=== PATIENT | male | born 1965 | race African-American/Black ===

== ENCOUNTER 2016-07-03 13:38 | Emergency (ER) | payer MEDICAID ==
[~2016-07-03] VITALS: Ht 182.9 cm; Wt 81.2 kg
[2016-07-03 14:08] VITALS: BP 140/93
[2016-07-03] MEDS ORDERED: diphenhdrAMINE HCL 50 MG/1 ML VL IM ONE (15:45)
[2016-07-03] MEDS ORDERED: methylPREDNISolone SOD SUCC 125 MG/2 ML VL IM ONE (15:45)
== END 2016-07-03 16:24 | disposition home or self-care (01) ==
LOC: ER 13:55
DX: T78.40XA Allergy, unspecified, initial encounter (principal); M79.89 Other specified soft tissue disorders; F17.210 Nicotine dependence, cigarettes, uncomplicated
CPT/HCPCS: 96372; 99284; J1200; J2930

== ENCOUNTER 2017-01-15 06:26 | Emergency (ER) | payer MEDICAID ==
[~2017-01-15] VITALS: Ht 190.5 cm; Wt 81.2 kg
[2017-01-15 07:04] VITALS: BP 128/80
[2017-01-15] MEDS ORDERED: cefTRIAXone SOD 1,000 MG VL IM ONE (07:15)
[2017-01-15] MEDS ORDERED: KETOROLAC TROMETH 60MG/2ML VIAL IM ONE (07:15)
== END 2017-01-15 07:40 | disposition home or self-care (01) ==
LOC: ER 06:26
DX: K02.9 Dental caries, unspecified (principal)
CPT/HCPCS: 96372; 99284; J0696; J1885

== ENCOUNTER 2024-11-18 09:42 | Emergency (ER) | payer MEDICAID ==
[~2024-11-18] VITALS: Ht 182.9 cm; Wt 62.0 kg
[2024-11-18 10:20] VITALS: BP 124/88; PULSE 93; RESP 16; TEMP 98.1; O2SAT 96
--- NOTE | 2024-11-18 10:38 | ED.PDOC ---
General HPI Comments 59 year old male presents to the ED for the c/c of pain w/ urination, and left lower back pain that radiates down his left leg. Pt notes of "scant urine", and an increased sensation of Urgency, but a decrease in urine output at this time. Denies fevers chills night sweats Denies pelvic pain Denies nausea vomiting diarrhea Denies dysuria urgency frequency Denies history of UTI Denies blood in the urine or semen Denies recent instruments/toys and urethra Denies current tobacco use Denies family history of prostate issues Chief Complaint: Urinary Time Seen by MD: 10:31 Primary Care Provider: DENIES Reviewed notes: Nurses Notes, Medications, Allergies Allergies: Coded Allergies: NO KNOWN ALLERGIES (Unverified , 10/14/11) Information Source: Patient Mode of Arrival: Ambulatory Severity: Moderate Inability to void: Moderate Timing: Months Has not urinated for: Hours Prehospital treatment: None Onset: Spontaneous Symptoms: Dysuria, Frequency, Urgency History of: None Location: (L)Flank Penile discharge: None Modifying factors: None associated signs and symptoms: Abdominal Pain, Flank Pain, Back Pain, Dysuria, Frequency, Urgency Past Medical History PAST MEDICAL HISTORY: Denies Surgical History: Denies all surgeries Family History Family History: Unknown Social History Smoker: Cigarettes Alcohol: Denies ETOH Use Drugs: Denies Drug Use Lives In: Home Constitutional: denies: chills, diaphoresis, fatigue, fever, malaise, sweats, weakness, others EENTM: denies: blurred vision, double vision, ear bleeding, ear discharge, ear drainage, ear pain, ear ringing, eye pain, eye redness, hearing loss, mouth pain, mouth swelling, nasal discharge, nose bleeding, nose congestion, nose pain, photophobia, tearing, throat pain, throat swelling, voice changes, others Respiratory: denies: cough, hemoptysis, orthopnea, SOB at rest, shortness of breath, SOB with excertion, stridor, wheezing, others Cardiovascular: denies: chest pain, dizzy spells, diaphoresis, Dyspnea on exertion, edema, irregular heart beat, left arm pain, lightheadedness, palpitations, PND, syncope, others Gastrointestinal: denies: abdomen distended, abdominal pain, blood streaked bowels, constipated, diarrhea, dysphagia, difficulty swallowing, hematemesis, melena, nausea, poor appetite, poor fluid intake, rectal bleeding, rectal pain, vomiting, others Genitourinary: reports: dysuria, flank pain, frequency; denies: burning, hematuria, incontinence, penile discharge, penile sore, pain, testicle pain, testicle swelling, urgency, others Neurological: denies: dizziness, fainting, headache, left sided numbness, left sided weakness, numbness, paresthesia, pre-existing deficit, right sided numbness, right sided weakness, seizure, speech problems, tingling, tremors, weakness, others Musculoskeletal: denies: back pain, gout, joint pain, joint swelling, muscle pain, muscle stiffness, neck pain, others Integumetry: denies: bruises, change in color, change in hair/nails, dryness, laceration, lesions, lumps, rash, wounds, others Allergic/Immunocompromised: denies: Difficulty Healing, Frequent Infections, Hives, Itching, others Hematologic/Lymphatic: denies: anemia, blood clots, easy bleeding, easy bruising, swollen glands, others Endocrine: denies: excessive hunger, excessive sweating, excessive thirst, excessive urination, flushing, intolerance to cold, intolerance to heat, unexpla ined weight gain, unexplained weight loss, others Psychiatric: denies: anxiety, bipolar disorder, depression, hopeless, panic disorder, schizophrenia, sleepless, suicidal, others All Other Systems: Reviewed and Negative Physical Exam General Appearance: No Apparent Distress, Normal HEENT: Normal ENT Inspection, Pharynx Normal, TMs Normal Neck: Full Range of Motion, Non-Tender, Normal, Normal Inspection Respiratory: Chest Non-Tender, Lungs Clear, No Accessory Muscle Use, No Respiratory Distress, Normal Breath Sounds Cardiovascular: No Edema, No JVD, No Murmur, Normal Peripheral Pulses, Regular Rate/Rhythm Breast Exam: Deferred Gastrointestinal: Non Tender, No Pulsatile Mass, Normal Bowel Sounds, Soft Genitalia: Deferred Pelvic: Deferred Rectal: Deferred Extremities: No calf tenderness, Normal capillary refill, Normal inspection, Normal range of motion, Non-tender, No pedal edema Musculoskeletal : Apperance: Normal Neurologic: Alert, No Motor Deficits, Normal Mood Cerebellar Function: Normal Reflexes: Normal Skin: Dry, Normal Color, Warm Lymphatic: No Adenopathy Was a procedure done? Was a procedure done?: No Differential Diagnosis Kidney stone (Female): Other Urinary Problem (Male): Bladder Obstruction, Prostatitis, Plelonephritis, Renal Failure, Urethritis, Urinary Retention, Urolithiasis, UTI X-Ray, Labs, Meds, VS Vital Signs Date Time Temp Pulse Resp B/P (MAP) Pulse Ox O2 Delivery O2 Flow Rate FiO2 11/18/24 10:20 93 16 96 Room Air 11/18/24 10:20 98.1 93 16 124/88 (100) 96 98.1 11/18/24 09:50 98.1 93 16 124/88 (100) 96 98.1 Lab Test 11/18/24 10:15 11/18/24 09:48 Range/Units White Blood Count 6.9 4.4-10.8 10^3/uL Red Blood Count 4.45 L 4.5-5.90 10^6/uL Hemoglobin 13.0 L 13.5-17.5 g/dL Hematocrit 38.3 L 41.0-53.0 % Mean Corpuscular Volume 86.1 80.0-100.0 fL Mean Corpuscular Hemoglobin 29.1 28.0-32.0 pg Mean Corpuscular Hemoglobin Concent 33.8 32.0-36.0 g/dL Red Cell Distribution Width 15.6 H 11.8-14.3 % Platelet Count 354 140-450 10^3/uL Mean Platelet Volume 7.8 6.9-10.8 fL Neutrophils (%) (Auto) 68.5 37.0-80.0 % Lymphocytes (%) (Auto) 22.3 10.0-50.0 % Monocytes (%) (Auto) 7.1 0.0-12.0 % Eosinophils (%) (Auto) 1.1 0.0-7.0 % Basophils (%) (Auto) 1.0 0.0-2.0 % Neutrophils # (Auto) 4.7 1.6-8.6 10 ^3/uL Lymphocytes # (Auto) 1.5 0.4-5.4 10 ^3/uL Monocytes # (Auto) 0.5 0-1.3 10 ^3/uL Eosinophils # (Auto) 0.1 0-0.8 10 ^3/uL Basophils # (Auto) 0.1 0-0.2 10 ^3/uL Nucleated Red Blood Cells 0.1 % Sodium Level 139 136-145 mmol/L Potassium Level 4.8 3.5-5.1 mmol/L Chloride Level 104 98-107 mmol/L Carbon Dioxide Level 26 20-31 mmol/L Anion Gap 9 5-15 Blood Urea Nitrogen 16 9-23 mg/dL Creatinine 1.52 H 0.700-1.30 mg/dL Glomerular Filtration Rate Calc 52 >90 mL/min BUN/Creatinine Ratio 10.5 10.0-20.0 Serum Glucose 97 74-106 mg/dL Calcium Level 10.2 8.7-10.4 mg/dL Urine Color Yellow Yellow Urine Clarity Clear Clear Urine pH 6.0 5.0-9.0 Urine Specific Graham 1.029 1.001-1.035 Urine Protein Trace H Negative Urine Ketones Negative Negative Urine Blood Negative Negative /uL Urine Nitrite Negative Negative Urine Bilirubin Negative Negative Urine Urobilinogen Normal Negative mg/dL Urine Leukocyte Esterase Negative Negative /uL Urine RBC 2 0 - 3 /hpf Urine Microscopic WBC 6 H 0-3 /HPF Urine Squamous Epithelial Cells Few <5 /hpf Urine Bacteria None seen None Seen /hpf Urine Mucus Few None Seen Urine Yeast (Budding) Occasional None Seen /hpf Urine Sperm Present None Seen /hpf Urine Glucose Normal Normal mg/dL Chlamydia trachomatis (ISMAEL) Pending Neisseria gonorrhoeae (ISMAEL) Pending Current Medications Medications (Trade) Dose Ordered Sig/Jaquelin Route Start Time Stop Time Status Last Admin Tamsulosin HCl (Flomax) 0.4 mg ONCE ONCE PO 11/18/24 10:45 11/18/24 10:46 DC 11/18/24 11:06 PATIENT: JANAE MELENDEZ ACCT: [id number] UNIT: [id number] : 1965 LOC: ER ROOM / BED: / AGE / SEX: 59 / M ADM STATUS: REG ER SERVICE 1208 ORDERING PHYSICIAN: EDUAR SANCHEZ NP PROCEDURE(s): ABPL - CT AB PEL WO CON-NO ORAL OR IV REASON: R/o kidney stone ORDER NUMBER(s): [id number], ACCESSION NUMBER(s): [id number] Indication: R/o kidney stone Technique: CT axial images of the abdomen and pelvis are obtained without contrast. Coronal and sagittal reformats were obtained. Radiation Dose Information: CTDI volume is 5.07 mGy. Dose-length product is 291.8 mGy*cm Comparison: None FINDINGS: There is limited interpretation of the abdomen and pelvis without administration of intravenous contrast. Lung bases demonstrate 4 mm right lower lobe pulmonary nodule. 9 mm right lower lobe solid nodule. 8 mm right lower lobe solid nodule. 6 mm left lower lobe solid nodule. The right adrenal gland unremarkable. Left adrenal gland poorly characterized. Spleen and pancreas are unremarkable in shape. Liver unremarkable in shape. No CT evidence for cholelithiasis. Left kidney demonstrates no hydronephrosis /nephrolithiasis. The right kidney demonstrates moderate to severe right hydroureteronephrosis. Right renal parenchymal thinning. Retrocrural lymph node measuring 2.4 cm. Stomach is partially distended. The small bowel loops are normal in caliber. Moderate volume stool in the colon. Radiopaque foreign body along the anterior aspect of the right iliac bone measuring 2 cm. Extensive retroperitoneal lymphadenopathy measuring up to 4.6 cm. Bilateral iliac lymphadenopathy including left iliac lymph node measuring 2.7 cm, right iliac lymph node measuring 4.5 cm. Bladder partially distended. Left pelvic sidewall lymph node measuring 2 cm. Right pelvic sidewall lymph node measuring 2.3 cm. Prostate measures 7.2 cm anteriorly and extends into the bladder, possibly compressing upon the distal right ureter. Soft tissue edema /anasarca. Extensive axial and appendicular skeleton osteoblastic metastatic lesions. This includes left acetabular lesion measuring 2.9 cm, sacral lesion measuring 2.7 cm, left sacral lesion measuring 1.4 cm, L4 lesion measuring 3.5 cm, L3 lesion measuring 2.9 cm, L2 lesion measuring 1.9 cm, L1 lesion measuring 2 cm. Multiple lesions also seen within the visualized portion of the thoracic spine. 2.6 cm right medial thigh radiopaque foreign body. IMPRESSION: Limited evaluation without contrast. Findings consistent with underlying malignancy. Recommend oncology consultation and CT chest abdomen pelvis with contrast. Moderate to severe right hydroureteronephrosis, likely secondary to compression of the ureter from adjacent lymphadenopathy /prostate enlargement / malignancy. Extensive retroperitoneal, retrocrural, pelvic sidewall, iliac lymphadenopathy consistent with underlying malignancy/ metastatic disease. 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 Bilateral pulmonary nodules likely representing metastatic lesions. Radiopaque foreign bodies anterior to the right iliac bone and in the medial right thigh, likely sequela of previous trauma. Correlate clinically. Other findings as described. X-Ray, Labs, Meds, VS Comment 59 year old male presents to the ED for the c/c of pain w/ urination, and left lower back pain that radiates down his left leg. Patient arrives alert and oriented, ABC's intact, afebrile, vital signs stable, saturating well in room air CBC was ordered to exclude anemia, blood loss, or infection. BMP was ordered to exclude electrolyte abnormalities, renal failure, dehydration, hyperglycemia Urinalysis was ordered to rule out UTI or hematuria. Flomax x 1 given with no adverse reactions. Chest CT ordered IMPRESSION: Limited evaluation without contrast.Findings consistent with underlying malignancy. Recommend oncology consultation and CT chest abdomen pelvis with contrast.Moderate to severe right hydroureteronephrosis, likely secondary to compression of the ureter from adjacent lymphadenopathy /prostate enlargement / malignancy.Extensive retroperitoneal, retrocrural, pelvic sidewall, iliac lymphadenopathy consistent with underlying malignancy/ metastatic disease.Extensive axial and appendicular skeleton osteoblastic metastatic disease.Bilateral pulmonary nodules likely representing metastatic lesions.Radiopaque foreign bodies anterior to the right iliac bone and in the medial right thigh, likely sequela of previous trauma. Correlate clinically.Other findings as described. The patient's workup reveals that the patient needs further evaluation and/or treatment for the above medical conditions. Patient verbalized understanding of the above and is awaiting further evaluation by the admitting service. Time of 1ST Reevaluation: 11:02 Reevaluation 1ST: Unchanged Patient Education/Counseling: Diagnosis, Treatment Family Education/Counseling: No Family Present Departure 1 Departure Time of Disposition: 13:24 Impression: Primary Impression: Pulmonary nodule Additional Impressions: Lymphoma Qualified Codes: C85.90 - Non-Hodgkin lymphoma, unspecified, unspecified site Hydroureteronephrosis Metastatic disease Qualified Codes: C79.9 - Secondary malignant neoplasm of unspecified site Disposition: ADMITTED INPATIENT Condition: Critical Critical Care Note Critical Care Time?: No Stability Stability form required: No Heart Score Heart Score: Heart Score Response (Comments) Value History N/A 0 EKG N/A 0 Age N/A 0 Risk Factors N/A 0 Troponin N/A 0 Total 0 I personally scribed for EDUAR SANCHEZ NP ([email or web address]) on 11/18/24 at 10:38. Electronically submitted by [place] ([email or web address]). I personally scribed for EDUAR SANCHEZ NP ([email or web address]) on 11/18/24 at 13:40. Electronically submitted by [place] ([email or web address]). EDUAR SANCHEZ NP Nov 18, 2024 10:38
[2024-11-18 10:41] LABS: Basophils # (auto) 0.1 10 ^3/uL (0-0.2); Eosinophils # (auto) 0.1 10 ^3/uL (0-0.8); Eosinophils % (auto) 1.1 % (0.0-7.0); Hematocrit 38.3 % (41.0-53.0); Lymphocytes # (auto) 1.5 10 ^3/uL (0.4-5.4); Lymphocytes % (auto) 22.3 % (10.0-50.0); Mean Corpuscular Hemoglobin 29.1 pg (28.0-32.0); Mean Corpuscular Hgb Conc. 33.8 g/dL (32.0-36.0); Mean Corpuscular Volume 86.1 fL (80.0-100.0); Monocytes # (auto) 0.5 10 ^3/uL (0-1.3); Monocytes % (auto) 7.1 % (0.0-12.0); Neutrophils # (auto) 4.7 10 ^3/uL (1.6-8.6); Neutrophils % (auto) 68.5 % (37.0-80.0); Nucleated Red Blood Cells % 0.1 %; Platelet Count (auto) 354 10^3/uL (140-450); Red Blood Cells 4.45 10^6/uL (4.5-5.90); Red Cell Distribution Width 15.6 % (11.8-14.3); White Blood Cell 6.9 10^3/uL (4.4-10.8)
[2024-11-18 10:47] LABS: Chloride 104 mmol/L (98-107); Potassium 4.8 mmol/L (3.5-5.1); Sodium 139 mmol/L (136-145)
[2024-11-18 10:48] LABS: Anion Gap 9 (5-15); Carbon Dioxide 26 mmol/L (20-31)
[2024-11-18 10:49] LABS: Calcium 10.2 mg/dL (8.7-10.4)
[2024-11-18 10:53] LABS: Glucose 97 mg/dL (74-106)
[2024-11-18 10:54] LABS: BUN/Creatinine Ratio 10.5 (10.0-20.0); Blood Urea Nitrogen 16 mg/dL (9-23)
[2024-11-18 10:57] LABS: Urine Bacteria None Seen /hpf (None Seen)
[2024-11-18] MEDS: TAMSULOSIN HYDROCHLORIDE 0.4 MG CAP PO ONE (11:06)
[2024-11-18 11:14] LABS: Urine Blood Negative /uL (Negative); Urine Budding Yeast OCCASIONAL /hpf (None Seen); Urine Clarity Clear (Clear); Urine Color Yellow (Yellow); Urine Mucus FEW (None Seen); Urine Protein, UAD TRACE (Negative); Urine Specific Gravity 1.029 (1.001-1.035); Urine Sperm PRESENT /hpf (None Seen); Urine Squamous Epithelial Cell FEW /hpf (<5); Urine Urobilinogen Normal (Negative); Urine WBC 6 /HPF (0-3)
--- NOTE | 2024-11-18 13:00 | DVH ---
Indication: R/o kidney stone Technique: CT axial images of the abdomen and pelvis are obtained without contrast. Coronal and sagit dulce reformats were obtained. Radiation Dose Information: CTDI volume is 5.07 mGy. Dose-length product is 291.8 mGy*cm Comparison: None FINDINGS: There is limited interpretation of the abdomen and pelvis without administration of intravenous contr ast. Lung bases demonstrate 4 mm right lower lobe pulmonary nodule. 9 mm right lower lobe solid nodule. 8 mm right lower lobe solid nodule. 6 mm left lower lobe solid nodule. The right adrenal gland unremarkable. Left adrenal gland poorly characterized. Spleen and pancreas are unremarkable in shape. Liver unremarkable in shape. No CT evidence for cholelithiasis. Left kidney demonstrates no hydronephrosis /nephrolithiasis. The right kidney demonstrates moderate to severe right hydroureteronephrosis. Right renal parenchymal thinning. Retrocrural lymph node measuring 2.4 cm. Stomach is partially distended. The small bowel loops are normal in caliber. Moderate volume stool in the colon. Radiopaque foreign body along the anterior aspect of the right il iac bone measuring 2 cm. Extensive retroperitoneal lymphadenopathy measuring up to 4.6 cm. Bilateral iliac lymphadenopathy inc luding left iliac lymph node measuring 2.7 cm, right iliac lymph node measuring 4.5 cm. Bladder partially distended. Left pelvic sidewall lymph node measuring 2 cm. Right pelvic sidewall l ymph node measuring 2.3 cm. Prostate measures 7.2 cm anteriorly and extends into the bladder, possibly compressing upon the dista l right ureter. Soft tissue edema /anasarca. Extensive axial and appendicular skeleton osteoblastic metastatic lesions. This includes left acetab ular lesion measuring 2.9 cm, sacral lesion measuring 2.7 cm, left sacral lesion measuring 1.4 cm, L4 lesion measuring 3.5 cm, L3 lesion measuring 2.9 cm, L2 lesion measuring 1.9 cm, L1 lesion measuring 2 cm. Multiple lesions also seen within the visualized portion of the thoracic spine. 2.6 cm right medial thigh radiopaque foreign body. IMPRESSION: Limited evaluation without contrast. Findings consistent with underlying malignancy. Recommend oncology consultation and CT chest abdomen pelvis with contrast. Moderate to severe right hydroureteronephrosis, likely secondary to compression of the ureter from ad jacent lymphadenopathy /prostate enlargement / malignancy. Extensive retroperitoneal, retrocrural, pelvic sidewall, iliac lymphadenopathy consistent with underl ricci malignancy/ metastatic disease. 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 Bilateral pulmonary nodules likely representing metastatic lesions. Radiopaque foreign bodies anterior to the right iliac bone and in the medial right thigh, likely sequ stan of previous trauma. Correlate clinically. Other findings as described.
[2024-11-20 03:07] LABS: Chlamydia Trachomatis, NAA Negative (Negative); Neisseria gonorrhoeae, NAA Negative (Negative)
== END 2024-11-18 16:31 | disposition left against medical advice (07) ==
LOC: ER 09:42
DX: R91.1 Solitary pulmonary nodule (principal); C85.90 Non-Hodgkin lymphoma, unspecified, unspecified site; C79.9 Secondary malignant neoplasm of unspecified site; N13.30 Unspecified hydronephrosis; F17.210 Nicotine dependence, cigarettes, uncomplicated
CPT/HCPCS: 36415; 74176; 80048; 81001; 85025